=== PATIENT | female | born 1990 | race Caucasian/White ===

== ENCOUNTER 2017-04-22 22:26 | Emergency (ER) | payer OTHER ==
[~2017-04-22] VITALS: Ht 167.6 cm; Wt 143.2 kg
[2017-04-22 22:27] VITALS: BP 137/97
[2017-04-22] MEDS ORDERED: METF10004 PO (22:52)
[2017-04-22] MEDS ORDERED: NORC1TAB4 PO (22:52)
[2017-04-22] MEDS ORDERED: GABA-279 PO (22:52)
== END 2017-04-23 03:28 | disposition left against medical advice (07) ==
LOC: M ED 22:26
DX: J00 Acute nasopharyngitis [common cold] (principal); Z53.21 Procedure and treatment not carried out due to patient leaving prior to being seen by health care provider

== ENCOUNTER → 2017-05-30 | Outpatient (REF) | payer OTHER ==
[~2017-05-30] MED LIST: GABA-279 PO; METF10004 PO; NORC1TAB4 PO
== END ==
LOC: M LAB REF 09:59
PROVIDERS: ATTEND Physician Assistant
DX: J02.9 Acute pharyngitis, unspecified (principal)

== ENCOUNTER 2018-07-16 21:24 | Emergency (ER) | payer OTHER, MEDICAID ==
[~2018-07-16] VITALS: Ht 165.1 cm; Wt 143.2 kg
[~2018-07-16 21:24] MED LIST changes: +GABA-1171 PO; -GABA-279 PO
[2018-07-16 21:52] LABS: BASO % 0.2 % (0.0-1.0); EOS # 0.1 10^3/uL (0.0-0.50); EOS % 0.5 % (0.0-3.0); HEMATOCRIT 44.1 % (36.0-47.0); LYMPH # 3.5 10^3/uL (1.5-6.5); LYMPH % 24.4 % (24.0-44.0); MEAN CORPUSCULAR HEMOGLOBIN 25.4 pg (27.0-33.0); MEAN CORPUSCULAR HGB CONC 31.7 g/dl (32.0-36.5); MEAN CORPUSCULAR VOLUME 79.9 fl (80.0-96.0); MONO # 0.5 10^3/uL (0.0-0.8); MONO % 3.7 % (0.0-5.0); NEUTROPHILS # 10.1 10^3/uL (1.8-7.7); NEUTROPHILS % 70.7 % (36.0-66.0); PLATELET COUNT, AUTOMATED 282 10^3/uL (150-450); RED BLOOD COUNT 5.52 10^6/uL (4.00-5.40); WHITE BLOOD COUNT 14.2 10^3/uL (4.0-10.0)
[2018-07-16 22:09] LABS: HCG, SERUM QUALITATIVE NEGATIVE (NEGATIVE)
[2018-07-16 22:20] LABS: ALBUMIN 3.7 GM/DL (3.2-5.2); ALT/SGPT 27 U/L (12-78); BILIRUBIN,DIRECT 0.1 MG/DL (0.0-0.2); BILIRUBIN,TOTAL 0.5 MG/DL (0.2-1.0); BLOOD UREA NITROGEN 15 MG/DL (7-18); CALCIUM LEVEL 8.9 MG/DL (8.5-10.1); CARBON DIOXIDE LEVEL 25 MEQ/L (21-32); CHLORIDE LEVEL 107 MEQ/L (98-107); CREATININE FOR GFR 1.06 MG/DL (0.55-1.30); GLOMERULAR FILTRATION RATE > 60.0 (>60); GLUCOSE, FASTING 173 MG/DL (70-100); LIPASE 121 U/L (73-393); SODIUM LEVEL 140 MEQ/L (136-145); TOTAL PROTEIN 6.8 GM/DL (6.4-8.2)
[2018-07-16] MEDS ORDERED: ISOVUE-370 76% 100ML VIAL (Q9967) As Ordered ONE (22:33)
--- NOTE | 2018-07-16 23:28 | REPVR ---
EXAM: CT Abdomen and Pelvis With Contrast EXAM DATE/TIME: 07/16/2018 10:44 PM CLINICAL HISTORY: 28 years old, female; Pain; Abdominal pain; Localized; Left lower quadrant (llq); Additional info: Llq pain; R/O colitis TECHNIQUE: Axial computed tomography images of the abdomen and pelvis with intravenous contrast. All CT scans at this facility use at least one of these dose optimization techniques: automated exposure control; mA and/or kV adjustment per patient size (includes targeted exams where dose is matched to clinical indication); or iterative reconstruction. Coronal and sagittal reformatted images were created and reviewed. CONTRAST: 100 ml of ISOVUE 370 administered intravenously. COMPARISON: US PELVIC NON-OB COMPLETE 03/15/2014 6:06 PM FINDINGS: Lower thorax: Clear appearing lung bases. The heart is top normal in size. ABDOMEN: Liver: Marked prominence the right lobe of the liver suspicious for hepatomegaly. There is moderate diffuse fatty infiltration of the liver. Gallbladder and bile ducts: Surgical clips are noted gallbladder fossa and the patient is status post cholecystectomy. Pancreas: Normal pancreas. Spleen: Normal spleen. Adrenals: Normal adrenal glands. Kidneys and ureters: There is enhancement of both kidneys. Stomach and bowel: There is hazy increased density between the sigmoid colon and left ovary probably the result of mild changes of diverticulitis. Mild increased density noted in the pelvic fat as well which may be mild changes of inflammation. The cecum is in the right pelvis. There is no evidence of inflammation in the region of the cecum. Normal-appearing small bowel. Appendix: The appendix is not identified. PELVIS: Bladder: There is a small amount of urine in the urinary bladder. Reproductive: Normal uterus. 2 CM cyst left ovary. ABDOMEN and PELVIS: Intraperitoneal space: There is no evidence of pneumoperitoneum. Bones/joints: There is bilateral spondylolysis of pars interarticularis of L5. There is a moderate broad-based disc protrusion L5-S1 causing moderate impression on the thecal sac. Soft tissues: Unremarkable. Vasculature: There is opacification of the aorta which appears normal in size. Lymph nodes: There is no evidence of lymphadenopathy. IMPRESSION: 1. Hepatomegaly with moderate fatty infiltration of the liver. 2. Subtle hazy increased densities surrounding the lower sigmoid colon and abutting the left ovary may be the result of mild changes of inflammation in this area such as mild changes of diverticulitis. 3. Bilateral spondylolysis of the pars interarticularis of L5. Electronically signed by: Juan Caicedo On 07/16/2018 23:28:33 PM
[2018-07-16] MEDS ORDERED: ZOFR4TAB16 PO (23:36)
[2018-07-16] MEDS ORDERED: FLAG500T PO (23:36)
[2018-07-16] MEDS ORDERED: CIPR-249 PO (23:36)
[2018-07-16 23:42] VITALS: BP 148/89
--- NOTE | 2018-07-17 05:33 | ECGEPIP ---
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
--- NOTE | 2018-07-17 09:03 | ED PDOC ---
Post-Departure Follow-Up dr nova faxed formal report of ct abd/p for fu Micah Alicia MD Jul 17, 2018 09:03
== END 2018-07-16 23:43 | disposition home or self-care (01) ==
LOC: M ED 21:24
DX: K57.32 Diverticulitis of large intestine without perforation or abscess without bleeding (principal); N83.299 Other ovarian cyst, unspecified side; E11.9 Type 2 diabetes mellitus without complications; E28.2 Polycystic ovarian syndrome; R16.0 Hepatomegaly, not elsewhere classified; K76.0 Fatty (change of) liver, not elsewhere classified; M47.816 Spondylosis without myelopathy or radiculopathy, lumbar region; Z79.84 Long term (current) use of oral hypoglycemic drugs
CPT/HCPCS: 74177; 80048; 80076; 81001; 83690; 84703; 85025; 93005; 99284; Q9967

== ENCOUNTER → 2019-01-19 | Outpatient (REF) | payer OTHER, MEDICAID ==
[~2019-01-19] MED LIST changes: +CIPR-249 PO; +FLAG500T PO; -NORC1TAB4 PO; +NORC1TAB7 PO; +ZOFR4TAB16 PO
[2019-01-19 16:15] LABS: BASO % 0.3 % (0.0-1.0); EOS # 0.1 10^3/uL (0.0-0.50); EOS % 0.9 % (0.0-3.0); HEMATOCRIT 45.4 % (36.0-47.0); HEMOGLOBIN 14.4 g/dl (12.0-15.5); LYMPH # 2.7 10^3/uL (1.5-6.5); LYMPH % 26.9 % (24.0-44.0); MEAN CORPUSCULAR HEMOGLOBIN 25.5 pg (27.0-33.0); MEAN CORPUSCULAR HGB CONC 31.7 g/dl (32.0-36.5); MEAN CORPUSCULAR VOLUME 80.5 fl (80.0-96.0); MONO # 0.4 10^3/uL (0.0-0.8); NEUTROPHILS # 6.7 10^3/uL (1.8-7.7); NEUTROPHILS % 67.5 % (36.0-66.0); PLATELET COUNT, AUTOMATED 258 10^3/uL (150-450); RED BLOOD COUNT 5.64 10^6/uL (4.00-5.40); WHITE BLOOD COUNT 9.9 10^3/uL (4.0-10.0)
[2019-01-19 16:21] LABS: ALBUMIN 3.7 GM/DL (3.2-5.2); ALT/SGPT 31 U/L (12-78); BILIRUBIN,TOTAL 0.5 MG/DL (0.2-1.0); BLOOD UREA NITROGEN 12 MG/DL (7-18); CALCIUM LEVEL 9.5 MG/DL (8.5-10.1); CARBON DIOXIDE LEVEL 25 MEQ/L (21-32); CHLORIDE LEVEL 106 MEQ/L (98-107); CHOLESTEROL LEVEL 196 MG/DL (<200); FREE T4 0.92 NG/DL (0.76-1.46); GLOMERULAR FILTRATION RATE > 60.0 (>60); GLUCOSE, FASTING 240 MG/DL (70-100); HDL CHOLESTEROL 49 MG/DL (>40); LDL CHOLESTEROL 116 MG/DL (<100); NON-HDL-C 147 MG/DL; POTASSIUM SERUM 4.5 MEQ/L (3.5-5.1); SODIUM LEVEL 139 MEQ/L (136-145); TRIGLYCERIDES LEVEL 156 MG/DL (<150)
[2019-01-19 16:42] LABS: TOTAL 25(OH) VITAMIN D 15.6 NG/ML (30.0-100.0)
[2019-01-19 18:04] LABS: HEMOGLOBIN A1c 8.8 %
== END ==
LOC: M LAB REF 15:31
PROVIDERS: ATTEND Nurse Practitioner Family
DX: Z13.9 Encounter for screening, unspecified (principal); E11.9 Type 2 diabetes mellitus without complications

== ENCOUNTER 2019-02-16 00:37 | Emergency (ER) | payer MEDICAID, OTHER ==
[~2019-02-16] VITALS: Ht 165.1 cm; Wt 144.6 kg
[2019-02-16] MEDS ORDERED: ONDANSETRON 4MG/2ML VIAL (J2405) IV ONE (01:30)
[2019-02-16] MEDS ORDERED: NS 1,000 ML IV ONE (01:30)
[2019-02-16 02:07] LABS: BASO % 0.4 % (0.0-1.0); EOS # 0.1 10^3/uL (0.0-0.50); EOS % 1.3 % (0.0-3.0); HEMOGLOBIN 13.2 g/dl (12.0-15.5); LYMPH # 3.3 10^3/uL (1.5-6.5); LYMPH % 30.5 % (24.0-44.0); MEAN CORPUSCULAR HGB CONC 31.4 g/dl (32.0-36.5); MEAN CORPUSCULAR VOLUME 79.5 fl (80.0-96.0); MONO # 0.6 10^3/uL (0.0-0.8); MONO % 5.7 % (0.0-5.0); NEUTROPHILS # 6.7 10^3/uL (1.8-7.7); NEUTROPHILS % 61.7 % (36.0-66.0); PLATELET COUNT, AUTOMATED 245 10^3/uL (150-450); RED BLOOD COUNT 5.28 10^6/uL (4.00-5.40); WHITE BLOOD COUNT 10.9 10^3/uL (4.0-10.0)
[2019-02-16] MEDS ORDERED: PROMETHAZINE INJ 25 MG/ML VIAL (J2550) IV ONE (02:15)
[2019-02-16 02:35] LABS: ALBUMIN 3.6 GM/DL (3.2-5.2); ALT/SGPT 46 U/L (12-78); BILIRUBIN,DIRECT 0.2 MG/DL (0.0-0.2); BILIRUBIN,TOTAL 0.5 MG/DL (0.2-1.0); BLOOD UREA NITROGEN 13 MG/DL (7-18); CALCIUM LEVEL 9.2 MG/DL (8.5-10.1); CARBON DIOXIDE LEVEL 26 MEQ/L (21-32); CHLORIDE LEVEL 108 MEQ/L (98-107); CREATININE FOR GFR 0.95 MG/DL (0.55-1.30); GLOMERULAR FILTRATION RATE > 60.0 (>60); GLUCOSE, FASTING 152 MG/DL (70-100); LIPASE 98 U/L (73-393); POTASSIUM SERUM 3.8 MEQ/L (3.5-5.1); SODIUM LEVEL 142 MEQ/L (136-145); TOTAL PROTEIN 6.5 GM/DL (6.4-8.2)
[2019-02-16] MEDS ORDERED: METR-265 PO (05:01)
[2019-02-16] MEDS ORDERED: HYDR-3713 PO (05:01)
[2019-02-16] MEDS ORDERED: SULF1TAB93 PO (05:01)
[2019-02-16] MEDS ORDERED: PROM25TA12 PO (05:01)
[2019-02-16] MEDS ORDERED: LOPE2CAP PO (05:01)
[2019-02-16] MEDS ORDERED: LOMO2.5T PO (05:16)
[2019-02-16 05:37] VITALS: BP 158/97
== END 2019-02-16 05:38 | disposition home or self-care (01) ==
LOC: M ED 00:37
DX: A04.0 Enteropathogenic Escherichia coli infection (principal); E28.2 Polycystic ovarian syndrome; K21.9 Gastro-esophageal reflux disease without esophagitis; L65.9 Nonscarring hair loss, unspecified; F32.9 Major depressive disorder, single episode, unspecified; F41.9 Anxiety disorder, unspecified; Z79.84 Long term (current) use of oral hypoglycemic drugs

== ENCOUNTER → 2019-05-17 | Outpatient (REF) | payer OTHER ==
[~2019-05-17] MED LIST changes: +HYDR-3713 PO; +LOMO2.5T PO; +LOPE2CAP PO; +METR-265 PO; +PROM25TA12 PO; +SULF1TAB93 PO
[2019-05-17 16:26] LABS: BLOOD UREA NITROGEN 15 MG/DL (7-18); C REACTIVE PROTEIN QUANTITATIV 1.69 MG/DL (0.00-0.30); CREATININE FOR GFR 1.06 MG/DL (0.55-1.30); GLOMERULAR FILTRATION RATE > 60.0 (>60)
== END ==
LOC: M LABDRAW1 15:32
PROVIDERS: ATTEND Physician Assistant
DX: M47.817 Spondylosis without myelopathy or radiculopathy, lumbosacral region (principal)

== ENCOUNTER → 2019-07-29 | Outpatient (REF) | payer OTHER ==
[2019-07-29 18:09] LABS: BASO % 0.2 % (0.0-1.0); EOS # 0.1 10^3/uL (0.0-0.5); EOS % 0.9 % (0.0-3.0); HEMATOCRIT 41.1 % (36.0-47.0); HEMOGLOBIN 12.9 g/dl (12.0-15.5); LYMPH # 2.3 10^3/uL (1.5-5.0); LYMPH % 28.7 % (24.0-44.0); MEAN CORPUSCULAR HEMOGLOBIN 25.1 pg (27.0-33.0); MEAN CORPUSCULAR HGB CONC 31.4 g/dl (32.0-36.5); MEAN CORPUSCULAR VOLUME 80.1 fl (80.0-96.0); MONO # 0.4 10^3/uL (0.0-0.8); MONO % 4.9 % (0.0-5.0); NEUTROPHILS # 5.2 10^3/uL (1.5-8.5); NEUTROPHILS % 65.1 % (36.0-66.0); PLATELET COUNT, AUTOMATED 224 10^3/uL (150-450); RED BLOOD COUNT 5.13 10^6/uL (4.00-5.40)
[2019-07-29 18:22] LABS: APPEARANCE, URINE CLEAR (CLEAR); BACTERIA, URINE AUTO NEGATIVE (NEGATIVE); BILIRUBIN, URINE AUTO NEGATIVE (NEGATIVE); BLOOD, URINE BLOOD NEGATIVE (NEGATIVE); COLOR, URINE YELLOW (YELLOW); GLUCOSE, URINE (UA) AUTO 3+ mg/dL (NEGATIVE); KETONE, URINE AUTO TRACE mg/dL (NEGATIVE); LEUKOCYTE ESTERASE, URINE AUTO NEGATIVE (NEGATIVE); NITRITE, URINE AUTO NEGATIVE (NEGATIVE); PROTEIN, URINE AUTO NEGATIVE (NEGATIVE); RBC, URINE AUTO 0 /HPF (0-3); SQUAMOUS EPITHELIAL CELL UR AU 1 /HPF (0-6); UROBILINOGEN, URINE AUTO 0.2 mg/dL (0.0-2.0); WBC, URINE AUTO 0 /HPF (0-3)
[2019-07-29 18:36] LABS: ALBUMIN 3.7 GM/DL (3.2-5.2); ALT/SGPT 37 U/L (12-78); BILIRUBIN,TOTAL 0.5 MG/DL (0.2-1.0); BLOOD UREA NITROGEN 9 MG/DL (7-18); C REACTIVE PROTEIN QUANTITATIV 1.48 MG/DL (0.00-0.30); CALCIUM LEVEL 8.7 MG/DL (8.5-10.1); CARBON DIOXIDE LEVEL 23 MEQ/L (21-32); CHLORIDE LEVEL 105 MEQ/L (98-107); COMPLEMENT C3 185 MG/DL (90-180); COMPLEMENT C4 26 MG/DL (10-40); GLOMERULAR FILTRATION RATE > 60.0 (>60); GLUCOSE, FASTING 403 MG/DL (70-100); POTASSIUM SERUM 4.2 MEQ/L (3.5-5.1); SODIUM LEVEL 137 MEQ/L (136-145); TOTAL PROTEIN 6.3 GM/DL (6.4-8.2)
[2019-07-29 18:57] LABS: ERYTHROCYTE SEDIMENTATION RATE 271 mm/hr (0-20)
[2019-08-03 10:10] LABS: ANA (HEP2) Positive (.); ANTI DS-DNA AB Negative (Negative); RNP ANTIBODY < 0.2 AI (0.0-0.9); SMITHS ANTIBODY < 0.2 AI (0.0-0.9); SSA SJOGRENS A <0.2 AI (0.0-0.9); SSB SJOGRENS B <0.2 AI (0.0-0.9)
== END ==
LOC: M SFHCRHEU 13:55
PROVIDERS: ATTEND Internal Medicine
DX: M32.9 Systemic lupus erythematosus, unspecified (principal)

== ENCOUNTER → 2019-09-10 | Outpatient (CLI) | payer OTHER ==
--- NOTE | 2019-09-10 16:34 | REPVR ---
PROCEDURE INFORMATION: Exam: MR Lumbar Spine Without Contrast. Exam date and time: 09/10/2019 3:26 PM Age: 29 years old Clinical indication: Pain; Lumbago; Additional info: Lumbar spindylolisthesis hnp/stenosis TECHNIQUE: Imaging protocol: Multiplanar magnetic resonance images of the lumbar spine without intravenous contrast. COMPARISON: No relevant prior studies available. FINDINGS: Vertebrae: Mild grade 1 spondylolisthesis of L5 on S1. There may be a partial bilateral spondylolysis of the pars interarticularis of L5. Spinal cord: The conus is normal in size and ending at L1 with no evidence of abnormal bright signal intensity. L4-L5: There is a small central disc protrusion with annular tear causing mild impression on the thecal sac. L5-S1: There is moderate broad-based disc protrusion L5-S1 and causing mild impression on the anterior aspect of the thecal sac. Other bones/joints: The marrow space has a normal signal intensity. Soft tissues: Unremarkable. IMPRESSION: 1. L5-S1 level demonstrates a moderate broad-based disc protrusion. 2. L4-L5 level demonstrates a small central disc protrusion. Electronically signed by: Juan Caicedo On 09/10/2019 16:34:47 PM
== END ==
LOC: M PLARAD 14:44
PROVIDERS: ATTEND Physician Assistant
DX: M43.16 Spondylolisthesis, lumbar region (principal)

== ENCOUNTER 2019-10-16 18:28 | Emergency (ER) | payer OTHER ==
[~2019-10-16] VITALS: Ht 165.1 cm; Wt 146.3 kg
[2019-10-16] MEDS ORDERED: BISO5TAB2 (18:36)
[2019-10-16] MEDS ORDERED: TRUL10IN (18:36)
[2019-10-16] MEDS ORDERED: DULO1CAP4 (18:36)
[2019-10-16] MEDS: GASTROGRAFIN SOLUTION 30ML PO SCH ×2 (19:18→19:54)
[2019-10-16 19:21] LABS: BASO % 0.3 % (0.0-1.0); EOS # 0.1 10^3/uL (0.0-0.5); EOS % 0.7 % (0.0-3.0); HEMATOCRIT 40.7 % (36.0-47.0); HEMOGLOBIN 12.8 g/dl (12.0-15.5); LYMPH # 3.5 10^3/uL (1.5-5.0); LYMPH % 30.1 % (24.0-44.0); MEAN CORPUSCULAR HEMOGLOBIN 25.2 pg (27.0-33.0); MEAN CORPUSCULAR HGB CONC 31.4 g/dl (32.0-36.5); MEAN CORPUSCULAR VOLUME 80.1 fl (80.0-96.0); MONO # 0.5 10^3/uL (0.0-0.8); MONO % 4.7 % (0.0-5.0); NEUTROPHILS # 7.4 10^3/uL (1.5-8.5); NEUTROPHILS % 63.9 % (36.0-66.0); PLATELET COUNT, AUTOMATED 264 10^3/uL (150-450); RED BLOOD COUNT 5.08 10^6/uL (4.00-5.40); WHITE BLOOD COUNT 11.6 10^3/uL (4.0-10.0)
[2019-10-16 19:35] LABS: INR 0.99; PROTHROMBIN TIME 12.8 SECONDS (11.8-14.0)
[2019-10-16 19:36] LABS: PARTIAL THROMBOPLASTIN TIME 27.3 SECONDS (25.0-38.4)
[2019-10-16 19:41] LABS: BLOOD UREA NITROGEN 9 MG/DL (7-18); CALCIUM LEVEL 8.4 MG/DL (8.5-10.1); CARBON DIOXIDE LEVEL 25 MEQ/L (21-32); CHLORIDE LEVEL 107 MEQ/L (98-107); CREATININE FOR GFR 0.92 MG/DL (0.55-1.30); GLOMERULAR FILTRATION RATE > 60.0 (>60); GLUCOSE, FASTING 176 MG/DL (70-100); POTASSIUM SERUM 3.5 MEQ/L (3.5-5.1); SODIUM LEVEL 141 MEQ/L (136-145)
[2019-10-16 19:42] LABS: ALBUMIN 3.5 GM/DL (3.2-5.2); ALT/SGPT 40 U/L (12-78); BILIRUBIN,DIRECT 0.1 MG/DL (0.0-0.2); BILIRUBIN,TOTAL 0.5 MG/DL (0.2-1.0); C REACTIVE PROTEIN QUANTITATIV 0.86 MG/DL (0.00-0.30); LIPASE 129 U/L (73-393); TOTAL PROTEIN 6.6 GM/DL (6.4-8.2)
[2019-10-16 19:52] LABS: ERYTHROCYTE SEDIMENTATION RATE 10 mm/hr (0-20)
[2019-10-16] MEDS ORDERED: ISOVUE-370 76% 100ML VIAL (Q9967) As Ordered ONE (20:37)
--- NOTE | 2019-10-16 20:57 | REPVR ---
PROCEDURE INFORMATION: Exam: CT Abdomen And Pelvis With Contrast Exam date and time: 10/16/2019 8:47 PM Age: 29 years old Clinical indication: Abdominal pain; Hematochezia/diarrhea TECHNIQUE: Imaging protocol: Computed tomography of the abdomen and pelvis with intravenous contrast. Radiation optimization: All CT scans at this facility use at least one of these dose optimization techniques: automated exposure control; mA and/or kV adjustment per patient size (includes targeted exams where dose is matched to clinical indication); or iterative reconstruction. Contrast material: ISO 370; Contrast volume: 100 ml; Contrast route: IV; COMPARISON: CT ABD/PEL W/IV CONTRAST ONLY 07/16/2018 10:32 PM FINDINGS: Liver: Diffuse hepatic steatosis. Gallbladder and bile ducts: The gallbladder is surgically absent. Pancreas: Unremarkable. No ductal dilation. Spleen: Unremarkable. Adrenals: Unremarkable. Kidneys and ureters: No hydronephrosis or stones. Stomach and bowel: Stomach is unremarkable. No small bowel obstruction. Large bowel is unremarkable. Appendix: No evidence of appendicitis. Intraperitoneal space: No pneumoperitoneum. No significant fluid collection. Vasculature: Unremarkable. Lymph nodes: No enlarged lymph nodes. Bladder: Unremarkable. Reproductive: Approximately 3.7 cm low-density cyst in the left ovary. Bones/joints: Chronic bilateral L5 spondylolysis. No definite spondylolisthesis. No acute fracture. Soft tissues: Unremarkable. IMPRESSION: 1. Approximately 3.7 cm low-density cyst in the left ovary. Recommend further evaluation with pelvic ultrasound. 2. Diffuse hepatic steatosis. Electronically signed by: Tristin Steward On 10/16/2019 20:57:39 PM
[2019-10-16 21:25] VITALS: BP 140/89
--- NOTE | 2019-10-17 06:36 | ED PDOC ---
Post-Departure Follow-Up dr vazquez faxed formal report of ct abd/p for fu Micah Alicia MD Oct 17, 2019 06:36
== END 2019-10-16 21:33 | disposition home or self-care (01) ==
LOC: M ED 18:28
DX: K76.0 Fatty (change of) liver, not elsewhere classified (principal); N83.202 Unspecified ovarian cyst, left side; E11.9 Type 2 diabetes mellitus without complications; K21.9 Gastro-esophageal reflux disease without esophagitis; L65.9 Nonscarring hair loss, unspecified; F60.3 Borderline personality disorder; F43.10 Post-traumatic stress disorder, unspecified; M32.9 Systemic lupus erythematosus, unspecified; M19.90 Unspecified osteoarthritis, unspecified site; M43.16 Spondylolisthesis, lumbar region; Z79.4 Long term (current) use of insulin; Z90.49 Acquired absence of other specified parts of digestive tract; Z90.89 Acquired absence of other organs
CPT/HCPCS: 36415; 74177; 80048; 80076; 83690; 84702; 85025; 85610; 85652; 85730; 86140; 87507; 99284; Q9963; Q9967

== ENCOUNTER → 2019-11-15 | Outpatient (CLI) | payer OTHER ==
[~2019-11-15] MED LIST changes: +BISO5TAB2; +DULO1CAP4; +TRUL10IN; +VENL37TA PO
== END ==
LOC: M LABSMTC 11:32
PROVIDERS: ATTEND Anesthesiology
DX: Z01.818 Encounter for other preprocedural examination (principal); Z11.59 Encounter for screening for other viral diseases
CPT/HCPCS: C8903; U0003

== ENCOUNTER 2019-11-18 12:02 | Day surgery (SDC) | payer OTHER ==
[~2019-11-18] VITALS: Ht 165.1 cm; Wt 142.4 kg
[~2019-11-18 12:02] MED LIST changes: +NS 1,000 ML IV ONE
[2019-11-18] MEDS ORDERED: propofoL 200 MG/20 ML VIAL As Ordered ONE (13:36)
[2019-11-18] MEDS ORDERED: LIDOCAINE 2% 100MG/5ML SDV (FOR ANES.) As Ordered ONE (13:36)
--- NOTE | 2019-11-18 13:48 | ROOR ---
Patient Name: Analisa Lopez Procedure Date: 11/18/2019 1:22 PM Date of : 1990 Age: 29 Room: [facility] Gender: Female Note Status: Finalized Procedure: Colonoscopy Indications: Chronic diarrhea Providers: Venkata Haney Jr, MD Referring MD: Pearl COLEMAN NP Requesting Provider: Medicines: Propofol per Anesthesia Complications: No immediate complications. Procedure: Pre-Anesthesia Assessment: - Prior to the procedure, a History and Physical was performed, and patient medications and allergies were reviewed. The patient is competent. The risks and benefits of the procedure and the sedation options and risks were discussed with the patient. All questions were answered and informed consent was obtained. Patient identification and proposed procedure were verified by the physician and the nurse in the pre-procedure area and in the procedure room. Mental Status Examination: alert and oriented. Airway Examination: normal oropharyngeal airway and neck mobility. Respiratory Examination: clear to auscultation. CV Examination: normal. ASA Grade Assessment: III - A patient with severe systemic disease. After reviewing the risks and benefits, the patient was deemed in satisfactory condition to undergo the procedure. The anesthesia plan was to use moderate sedation / analgesia (conscious sedation). Immediately prior to administration of medications, the patient was re-assessed for adequacy to receive sedatives. The heart rate, respiratory rate, oxygen saturations, blood pressure, adequacy of pulmonary ventilation, and response to care were monitored throughout the procedure. The physical status of the patient was re-assessed after the procedure. The Colonoscope was introduced through the anus and advanced to the terminal ileum. The colonoscopy was performed without difficulty. The patient tolerated the procedure well. The quality of the bowel preparation was adequate. Findings: The rectum, recto-sigmoid colon, sigmoid colon, descending colon, transverse colon, ascending colon, cecum, appendiceal orifice, ileocecal valve and ileum appeared normal. Biopsies for histology were taken with a cold forceps from the cecum, ascending colon, transverse colon, descending colon, rectum and rectosigmoid colon for evaluation of microscopic colitis. The terminal ileum appeared normal. Biopsies were taken with a cold forceps for histology. Non-bleeding external and internal hemorrhoids were found during retroflexion and during endoscopy. The hemorrhoids were Grade II (internal hemorrhoids that prolapse but reduce spontaneously) and Grade III (internal hemorrhoids that prolapse but require manual reduction). Impression: - The rectum, recto-sigmoid colon, sigmoid colon, descending colon, transverse colon, ascending colon, cecum, appendiceal orifice, ileocecal valve and terminal ileum are normal. Biopsied. - The examined portion of the ileum was normal. Biopsied. - Non-bleeding external and internal hemorrhoids. Recommendation: - Repeat colonoscopy at appointment to be scheduled for screening purposes. - Return to my office at appointment to be scheduled. Venkata Haney MD Venkata Haney Jr, MD 11/18/2019 1:48:37 PM Electronically signed by Venkata Haney Jr, MD Number of Addenda: 0 Note Initiated On: 11/18/2019 1:22 PM Estimated Blood Loss: Estimated blood loss: none.
[2019-11-18 14:42] VITALS: BP 132/86
== END 2019-11-18 14:45 | disposition home or self-care (01) ==
LOC: M OPP 12:02
PROVIDERS: ATTEND Surgery
DX: K64.2 Third degree hemorrhoids (principal); K52.9 Noninfective gastroenteritis and colitis, unspecified; I10 Essential (primary) hypertension; E11.9 Type 2 diabetes mellitus without complications; Z79.84 Long term (current) use of oral hypoglycemic drugs; Z79.891 Long term (current) use of opiate analgesic; Z79.899 Other long term (current) drug therapy; Z88.8 Allergy status to other drugs, medicaments and biological substances

== ENCOUNTER → 2020-01-09 | Outpatient (REF) ==
[~2020-01-09] MED LIST changes: -NS 1,000 ML IV ONE
[2020-01-09 12:02] LABS: COLLAGEN EPINEPHRINE 209 SECONDS (74-162)
[2020-01-09 12:23] LABS: COLLAGEN ADP 80 SECONDS (56-103)
== END ==
LOC: M LAB REF 09:56
DX: Z00.00 Encounter for general adult medical examination without abnormal findings (principal)

== ENCOUNTER → 2020-05-17 | Outpatient (CLI) | payer OTHER | LOC: M LABSMTC 11:38 | PROVIDERS: ATTEND Physical Medicine & Rehabilitation | DX: Z01.812 Encounter for preprocedural laboratory examination (principal); Z20.828 Contact with and (suspected) exposure to other viral communicable diseases ==

== ENCOUNTER → 2021-09-18 | Outpatient (CLI) | payer OTHER ==
[~2021-09-18] MED LIST changes: +BACTDSTA PO; +BISO1TAB18; -BISO5TAB2; +LIDOCAINE 1% MDV 20ML VIAL As Ordered ONE; +SPIR50TA4 PO; -SULF1TAB93 PO
[2021-09-18 10:37] VITALS: BP 168/93
== END ==
LOC: M IRPRO 09:28
PROVIDERS: ATTEND Otolaryngology
DX: D11.0 Benign neoplasm of parotid gland (principal)

== ENCOUNTER → 2021-11-03 | Outpatient (CLI) | payer OTHER ==
[~2021-11-03] MED LIST changes: -BISO1TAB18; +BISO1TAB18 PO; +FERR325T19 PO; +GABA600T4 PO; -LIDOCAINE 1% MDV 20ML VIAL As Ordered ONE; +OMEP40CA5 PO; +TIZA10TA PO; +TRUL0.5I SC
== END ==
LOC: M LABSMTC 11:08
PROVIDERS: ATTEND Anesthesiology
DX: Z01.818 Encounter for other preprocedural examination (principal); Z11.52 Encounter for screening for COVID-19

== ENCOUNTER 2021-11-08 08:17 | Day surgery (SDC) | payer OTHER ==
[~2021-11-08] VITALS: Ht 165.1 cm; Wt 134.9 kg
[~2021-11-08 08:17] MED LIST changes: +LIDOCAINE 1% MDV 20ML VIAL SQ PRN; +LR 1,000 ML IV ONE; +dexameTHASONE 4 MG/ML 1ML VIAL (J1100 PER 1MG) IV ONE
[2021-11-08] MEDS ORDERED: LIDOCAINE W/EPINEPHRINE 1% 20ML VIAL As Ordered ONE (11:10)
[2021-11-08] MEDS ORDERED: BACITRACIN OINTMENT 30GM TUBE As Ordered ONE (11:10)
[2021-11-08] MEDS ORDERED: propofoL 200 MG/20 ML VIAL As Ordered ONE ×2 (11:10→12:25)
[2021-11-08] MEDS ORDERED: ROCURONIUM BROMIDE 50 MG/5 ML VIAL As Ordered ONE (11:10)
[2021-11-08] MEDS ORDERED: LIDOCAINE 2% 100MG/5ML SDV (FOR ANES.) As Ordered ONE (11:10)
[2021-11-08] MEDS ORDERED: dexameTHASONE 4 MG/ML 1ML VIAL (J1100 PER 1MG) As Ordered ONE (11:10)
[2021-11-08] MEDS ORDERED: ONDANSETRON 4MG/2ML VIAL As Ordered ONE (11:10)
[2021-11-08] MEDS ORDERED: fentaNYL 250 MCG/5 ML INJECTION As Ordered ONE (11:10)
[2021-11-08] MEDS ORDERED: MIDAZOLAM INJ 2MG/2ML VIAL (J2250 PER 1MG) As Ordered ONE (11:11)
[2021-11-08] MEDS ORDERED: LACRILUBE (AKWA TEARS) OPHTH OINT 3.5 GM As Ordered ONE (11:19)
[2021-11-08] MEDS ORDERED: SUCCINYLCHOLINE 100 MG/5 ML SYRINGE (J0330) As Ordered ONE (11:38)
[2021-11-08] MEDS ORDERED: REMIFENTANIL 1MG 3ML VIAL As Ordered ONE (12:13)
[2021-11-08] MEDS ORDERED: PHENYLephrine 500MCG 5ML (100MCG/ML) SYRINGE As Ordered ONE (12:14)
[2021-11-08] MEDS ORDERED: ACETAMINOPHEN 1000MG 100ML IV BTL (OFIRMEV) (J0131 PER 10MG) As Ordered ONE (13:08)
[2021-11-08] MEDS ORDERED: SUGAMMADEX SODIUM 500 MG/5 ML VIAL (BRIDION) As Ordered ONE (13:08)
[2021-11-08] MEDS ORDERED: HYDROmorphone HCL 2MG/ML 1ML VIAL As Ordered ONE (13:08)
[2021-11-08] MEDS ORDERED: METOCLOPRAMIDE INJ 10MG/2ML VIAL (J2765 PER 1) As Ordered ONE (14:02)
[2021-11-08] MEDS ORDERED: LR 1,000 ML IV SCH (14:55)
[2021-11-08] MEDS ORDERED: ONDANSETRON 4MG/2ML VIAL IV PRN (14:55)
[2021-11-08] MEDS ORDERED: oxyCODONE 5MG TAB PO PRN (14:55)
[2021-11-08] MEDS ORDERED: fentaNYL 100 MCG/2 ML INJECTION IV PRN (14:55)
[2021-11-08 15:55] VITALS: BP 138/89
[2021-11-08] MEDS ORDERED: LEXA5TAB13 (20:50)
== END 2021-11-08 15:59 | disposition home or self-care (01) ==
LOC: M SDC 08:17
PROVIDERS: ATTEND Otolaryngology
DX: K11.8 Other diseases of salivary glands (principal); I10 Essential (primary) hypertension; E11.9 Type 2 diabetes mellitus without complications; G43.909 Migraine, unspecified, not intractable, without status migrainosus; R19.7 Diarrhea, unspecified; K21.9 Gastro-esophageal reflux disease without esophagitis; F43.10 Post-traumatic stress disorder, unspecified; F41.9 Anxiety disorder, unspecified; F32.9 Major depressive disorder, single episode, unspecified; M32.9 Systemic lupus erythematosus, unspecified; Z88.8 Allergy status to other drugs, medicaments and biological substances; Z79.899 Other long term (current) drug therapy
CPT/HCPCS: 42415; 81025; 88307; J0131; J0330; J0697; J1100; J1170; J2250; J2370; J2405; J2765; J3010

== ENCOUNTER 2021-11-08 20:43 | Emergency (ER) | payer OTHER ==
[~2021-11-08] VITALS: Ht 165.1 cm; Wt 135.0 kg
[~2021-11-08 20:43] MED LIST changes: -LIDOCAINE 1% MDV 20ML VIAL SQ PRN; -LR 1,000 ML IV ONE; -dexameTHASONE 4 MG/ML 1ML VIAL (J1100 PER 1MG) IV ONE
[2021-11-08 20:44] VITALS: BP 141/95
[2021-11-08] MEDS ORDERED: LEXA5TAB13 (20:50)
== END 2021-11-08 22:05 | disposition left against medical advice (07) ==
LOC: M ED 20:43
DX: Z53.21 Procedure and treatment not carried out due to patient leaving prior to being seen by health care provider (principal)

== ENCOUNTER 2025-04-23 17:34 | Emergency (ER) | payer OTHER ==
[~2025-04-23] VITALS: Ht 165.1 cm; Wt 93.1 kg
[~2025-04-23 17:34] MED LIST changes: +GABA-1490 PO; -GABA600T4 PO; +LEXA5TAB13
[2025-04-23] MEDS: DERMABOND TOPICAL SKIN ADHESIVE TOP ONE (19:10)
[2025-04-23 19:31] VITALS: BP 120/82; TEMP 97.5; O2SAT 100
[2025-04-23] MEDS: ACETAMINOPHEN 325 MG TAB PO ONE (19:40)
== END 2025-04-23 19:46 | disposition home or self-care (01) ==
LOC: M ED 17:34
DX: S01.01XA Laceration without foreign body of scalp, initial encounter (principal); W22.8XXA Striking against or struck by other objects, initial encounter; Y92.000 Kitchen of unspecified non-institutional (private) residence as the place of occurrence of the external cause; Y93.89 Activity, other specified; Y99.9 Unspecified external cause status; I10 Essential (primary) hypertension; E11.9 Type 2 diabetes mellitus without complications; F32.A Depression, unspecified; F60.3 Borderline personality disorder; F43.10 Post-traumatic stress disorder, unspecified; F41.0 Panic disorder [episodic paroxysmal anxiety]; E28.2 Polycystic ovarian syndrome; Z79.4 Long term (current) use of insulin; Z79.899 Other long term (current) drug therapy; Z88.8 Allergy status to other drugs, medicaments and biological substances